=== PATIENT | female | born 1995 | race Two or more races ===

== ENCOUNTER 2018-06-28 20:20 | Observation (INO) | payer MEDICAID ==
[2018-06-28] MEDS ORDERED: LACTATED RINGER'S 1,000 ML IV ONE (20:40)
[2018-06-28] MEDS ORDERED: TERBUTALINE SULFATE 1 MG/ML 1ML VIAL SC SCH (20:45)
[2018-06-28] MEDS ORDERED: PREN-96 PO (21:07)
== END 2018-06-28 21:00 | disposition home or self-care (01) | DRG 566 ==
LOC: LDRP 20:20
PROVIDERS: ADMIT Obstetrics & Gynecology; ATTEND Obstetrics & Gynecology
DX: O26.613 Liver and biliary tract disorders in pregnancy, third trimester (principal); K80.20 Calculus of gallbladder without cholecystitis without obstruction; O21.2 Late vomiting of pregnancy; Z3A.36 36 weeks gestation of pregnancy
CPT/HCPCS: 59025; 81002; G0378

== ENCOUNTER 2025-09-21 21:10 | Emergency (ER) | payer MEDICAID ==
[~2025-09-21] VITALS: Ht 165.1 cm; Wt 84.0 kg
[~2025-09-21 21:10] MED LIST: PREN-96 PO
--- NOTE | 2025-09-21 21:32 | ED.PDOC ---
GI ASSESSMENT HPI Comments 29-year-old female who came to ER for nausea and vomiting. Patient has been having episodes of nausea and vomiting and diarrhea all day, associated with generalized weakness and dizziness Chief Complaint: Nausea/Vomiting Time Seen by MD: 21:30 Primary Care Provider: NONE Reviewed Notes: Nurses Notes Allergies: Coded Allergies: NO KNOWN ALLERGIES (Unverified , 09/15/13) Home Meds Active Scripts Loperamide Hcl (Imodium) 2 Mg Cp, 2 MG PO Q6HP PRN, #30 CAP Prov:EDGAR ROSE MD 09/22/25 Ondansetron HCl (Ondansetron Hydrochloride) 8 Mg Tab, 8 MG PO Q6HP PRN, #30 TAB Prov:EDGAR ROSE MD 09/22/25 Reported Medications Vit W/ Ferrous Fumara ( One Daily) Daily Tab, 1 TAB PO DAILY, #90 TAB 3 Refills 06/28/18 Information Source: Patient Mode of Arrival: EMS Timing: Hours Duration: Since onset Prehospital treatment: IVF Past Medical History PAST MEDICAL HISTORY: Gallstones Surgical History: Cholecystectomy, Denies all surgeries 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 History Family History Family History: No family hx of Cancer, No family hx of DM, No family hx of Heart benito, No family hx of HTN, No family hx of Lung benito Social History Smoker: Non-Smoker Alcohol: Occasionally Drugs: Denies Drug Use Lives In: Home Constitutional: denies: chills, diaphoresis, fatigue, fever, malaise, sweats, weakness, others EENTM: denies: blurred vision, double vision, ear bleeding, ear discharge, ear drainage, ear pain, ear ringing, eye pain, eye redness, hearing loss, mouth pain, mouth swelling, nasal discharge, nose bleeding, nose congestion, nose pain , photophobia, tearing, throat pain, throat swelling, voice changes, others Respiratory: denies: cough, hemoptysis, orthopnea, SOB at rest, shortness of breath, SOB with excertion, stridor, wheezing, others Cardiovascular: denies: chest pain, dizzy spells, diaphoresis, Dyspnea on exertion, edema, irregular heart beat, left arm pain, lightheadedness, palpitations, PND, syncope, others Gastrointestinal: reports: abdominal pain, diarrhea, nausea, vomiting; denies: abdomen distended, blood streaked bowels, constipated, dysphagia, difficulty swallowing, hematemesis, melena, poor appetite, poor fluid intake, rectal b leeding, rectal pain, others Genitourinary: denies: abnormal vagina bleeding, burning, dyspareunia, dysuria, flank pain, frequency, hematuria, incontinence, pain, , vagina discharge, urgency, others Neurological: reports: dizziness; denies: fainting, headache, left sided numbness, left sided weakness, numbness, paresthesia, pre-existing deficit, right sided numbness, right sided weakness, seizure, speech problems, tingling, tremors, weakness, others Musculoskeletal: denies: back pain, gout, joint pain, joint swelling, muscle pain, muscle stiffness, neck pain, others Integumetry: denies: bruises, change in color, change in hair/nails, dryness, laceration, lesions, lumps, rash, wounds, others Allergic/Immunocompromised: denies: Difficulty Healing, Frequent Infections, Hives, Itching, others Hematologic/Lymphatic: denies: anemia, blood clots, easy bleeding, easy bruising, swollen glands, others Endocrine: denies: excessive hunger, excessive sweating, excessive thirst, excessive urination, flushing, intolerance to cold, intolerance to heat, unexplained weight gain, unexplained weight loss, others Psychiatric: denies: anxiety, bipolar disorder, depression, hopeless, panic disorder, schizophrenia, sleepless, suicidal, others Physical Exam General Appearance: No Apparent Distress, Normal HEENT: Normal ENT Inspection, Pharynx Normal, TMs Normal Neck: Full Range of Motion, Non-Tender, Normal, Normal Inspection Respiratory: Chest Non-Tender, Lungs Clear, No Accessory Muscle Use, No Respiratory Distress, Normal Breath Sounds Cardiovascular: No Edema, No JVD, No Murmur, No Gallop, Normal Peripheral Pulses, Regular Rate/Rhythm Breast Exam: Deferred Gastrointestinal: Epigastric, No Organomegaly, No Pulsatile Mass, Normal Bowel Sounds, Soft, Tenderness Genitalia: Deferred Pelvic: Deferred Rectal: Deferred Extremities: No calf tenderness, Normal capillary refill, Normal inspection, Normal range of motion, Non-tender, No pedal edema Musculoskeletal : Apperance: Normal Neurologic: Alert, corn grower II-XII nml as Tested, No Motor Deficits, Normal Affect, Normal Mood, No Sensory Deficits Cerebellar Function: Normal Reflexes: Normal Skin: Dry, Normal Color, Warm Lymphatic: No Adenopathy Was a procedure done? Was a procedure done?: No GI differential Dx Differential Diagnosis: Gastritis/PUD, Gastroenteritis, Pancreatitis, UTI, Urolithiasis, Dehydration X-Ray, Labs, Meds, VS Vital Signs Date Time Temp Pulse Resp B/P (MAP) Pulse Ox O2 Delivery O2 Flow Rate FiO2 09/22/25 01:20 99 18 129/75 (93) 98 09/21/25 22:05 97.2 104 18 151/92 (111) 100 97.2 09/21/25 21:45 100 Room Air* 0 21 09/21/25 21:10 98.7 110 18 93/72 99 98.7 Lab Test 09/22/25 01:25 09/21/25 21:35 Range/Units Urine Color Light-yellow Yellow Urine Clarity Clear Clear Urine pH 5.5 5.0-9.0 Urine Specific [place] 1.023 1.001-1.035 Urine Protein Trace H Negative Urine Ketones 3+ H Negative Urine Blood 1+ H Negative /uL Urine Nitrite Negative Negative Urine Bilirubin Negative Negative Urine Urobilinogen Normal Negative mg/dL Urine Leukocyte Esterase Negative Negative /uL Urine RBC None seen 0 - 4 /hpf Urine Microscopic WBC 1 0-5 /HPF Urine Squamous Epithelial Cells Few <5 /hpf Urine Bacteria None seen None Seen /hpf Urine Mucus Few None Seen Urine Glucose Normal Normal mg/dL White Blood Count 10.6 4.4-10.8 10^3/uL Red Blood Count 4.69 4.0-5.20 10^6/uL Hemoglobin 15.1 12.2-16.2 g/dL Hematocrit 44.1 36.0-46.0 % Mean Corpuscular Volume 93.9 80.0-100.0 fL Mean Corpuscular Hemoglobin 32.2 H 28.0-32.0 pg Mean Corpuscular Hemoglobin Concent 34.3 32.0-36.0 g/dL Red Cell Distribution Width 13.8 11.8-14.3 % Platelet Count 285 140-450 10^3/uL Mean Platelet Volume 8.6 6.9-10.8 fL Neutrophils (%) (Auto) 88.6 H 37.0-80.0 % Lymphocytes (%) (Auto) 8.2 L 10.0-50.0 % Monocytes (%) (Auto) 2.7 0.0-12.0 % Eosinophils (%) (Auto) 0.0 0.0-7.0 % Basophils (%) (Auto) 0.5 0.0-2.0 % Neutrophils # (Auto) 9.4 H 1.6-8.6 10 ^3/uL Lymphocytes # (Auto) 0.9 0.4-5.4 10 ^3/uL Monocytes # (Auto) 0.3 0-1.3 10 ^3/uL Eosinophils # (Auto) 0 0-0.8 10 ^3/uL Basophils # (Auto) 0 0-0.2 10 ^3/uL Nucleated Red Blood Cells 0.0 % Sodium Level 148 H 136-145 mmol/L Potassium Level 3.5 3.5-5.1 mmol/L Chloride Level 111 H 98-107 mmol/L Carbon Dioxide Level 17 L 20-31 mmol/L Anion Gap 20 H 5-15 Blood Urea Nitrogen 6 L 9-23 mg/dL Creatinine 0.91 0.550-1.02 mg/dL Glomerular Filtration Rate Calc 87 >90 mL/min BUN/Creatinine Ratio 6.6 L 10.0-20.0 Serum Glucose 147 H 74-106 mg/dL Calcium Level 9.3 8.7-10.4 mg/dL Magnesium Level 1.5 L 1.6-2.6 mg/dL Total Bilirubin 1.5 H 0.2-1.0 mg/dL Aspartate Amino Transferase (AST) 67 H 13-40 U/L Alanine Aminotransferase (ALT) 116 H 7-40 U/L Alkaline Phosphatase 80 46-116 U/L Total Protein 7.5 5.7-8.2 g/dL Albumin 4.7 3.2-4.8 g/dL Current Medications Medications (Trade) Dose Ordered Sig/Dorothea Route Start Time Stop Time Status Last Admin Sodium Chloride 1,000 ml @ 1,000 mls/hr Q1H ONCE IV 09/21/25 21:30 09/21/25 22:29 DC 09/21/25 21:55 Ondansetron HCl (Zofran) 4 mg ONCE ONCE IV 09/21/25 21:30 09/21/25 21:31 DC 09/21/25 21:56 Loperamide HCl (Imodium Capsule) 4 mg ONCE ONCE PO 09/21/25 21:30 09/21/25 21:31 DC 09/21/25 21:55 Time of 1ST Reevaluation: 21:26 Reevaluation 1ST: Unchanged Patient Education/Counseling: Diagnosis, Treatment Family Education/Counseling: No Family Present SEPSIS Sepsis Screen Date sepsis recognized/suspect: Sep 21, 2025 Time Sepsis recognized/suspect: 2109 Recent Procedure: No On Antibiotic Therapy: No Respiratory Rate >20: No Heart Rate >90: No Temp<36 C (96.8 F) or >38.3 C: No SBP <90 or MAP <65 mmHG: No New Acute Mental Status Change: No Is the patient on CPAP, BIPAP,: No Vital Signs Date Time Temp Pulse Resp B/P (MAP) Pulse Ox O2 Delivery O2 Flow Rate FiO2 09/22/25 01:20 99 18 129/75 (93) 98 09/21/25 22:05 97.2 104 18 151/92 (111) 100 97.2 09/21/25 21:45 100 Room Air* 0 21 09/21/25 21:10 98.7 110 18 93/72 99 98.7 Laboratory Tests Test 09/21/25 21:35 White Blood Count 10.6 10^3/uL (4.4-10.8) Medications Medications Dose Ordered Sig/Dorothea Route Start Time Stop Time Status Last Admin Dose Admin Loperamide HCl 4 mg ONCE ONCE PO 09/21/25 21:30 09/21/25 21:31 DC 09/21/25 21:55 Ondansetron HCl 4 mg ONCE ONCE IV 09/21/25 21:30 09/21/25 21:31 DC 09/21/25 21:56 Sodium Chloride 1,000 ml @ 1,000 mls/hr Q1H ONCE IV 09/21/25 21:30 09/21/25 22:29 DC 09/21/25 21:55 Departure 1 Departure Time of Disposition: 23:40 Impression: Primary Impression: Nausea vomiting and diarrhea Additional Impression: Acute abdominal Pain Disposition: HOME / SELF CARE / HOMELESS Condition: Stable e-Prescriptions Loperamide Hcl (Imodium) 2 Mg Cp 2 MG PO Q6HP PRN, #30 CAP Prov: EDGAR ROSE MD 09/22/25 Ondansetron HCl (Ondansetron Hydrochloride) 8 Mg Tab 8 MG PO Q6HP PRN, #30 TAB Prov: EDGAR ROSE MD 09/22/25 Discharged With: Self Critical Care Note Critical Care Time?: No Stability Stability form required: No Heart Score Heart Score: Heart Score Response (Comments) Value History N/A 0 EKG N/A 0 Age N/A 0 Risk Factors N/A 0 Troponin N/A 0 Total 0 I personally scribed for EDGAR ROSE MD ([email or web address]) on 09/21/25 at 21:32. Electronically submitted by Jose Blunt ([email or web address]). EDGAR ROSE MD Sep 21, 2025 21:32
[2025-09-21 21:45] VITALS: O2SAT 100
[2025-09-21] MEDS: SODIUM CHLORIDE 0.9% 1,000 ML IV ONE (21:55)
[2025-09-21] MEDS: LOPERAMIDE HCL 2 MG CAP/TAB PO ONE (21:55)
[2025-09-21] MEDS: ONDANSETRON HCL 4 MG/2 ML VIAL IV ONE (21:56)
[2025-09-21 22:02] LABS: Hematocrit 44.1 % (36.0-46.0); Hemoglobin 15.1 g/dL (12.2-16.2); Mean Corpuscular Hemoglobin 32.2 pg (28.0-32.0); Mean Corpuscular Volume 93.9 fL (80.0-100.0); Nucleated Red Blood Cells % 0.0 %
[2025-09-21 22:05] VITALS: TEMP 97.2
[2025-09-21 22:23] LABS: Alanine Aminotransferase 116 U/L (7-40); Albumin 4.7 g/dL (3.2-4.8); Alkaline Phosphatase 80 U/L (46-116); Anion Gap 20 (5-15); BUN/Creatinine Ratio 6.6 (10.0-20.0); Bilirubin, Total 1.5 mg/dL (0.2-1.0); Blood Urea Nitrogen 6 mg/dL (9-23); Calcium 9.3 mg/dL (8.7-10.4); Carbon Dioxide 17 mmol/L (20-31); Chloride 111 mmol/L (98-107); Glucose 147 mg/dL (74-106); Magnesium 1.5 mg/dL (1.6-2.6); Potassium 3.5 mmol/L (3.5-5.1); Sodium 148 mmol/L (136-145); Total Protein 7.5 g/dL (5.7-8.2)
[2025-09-22] MEDS ORDERED: ONDA-180 PO (00:41)
[2025-09-22] MEDS ORDERED: LOPE2CAP16 PO (00:41)
[2025-09-22 01:20] VITALS: BP 129/75; PULSE 99; RESP 18; O2SAT 98
[2025-09-22 01:45] LABS: Urine Protein, UAD TRACE (Negative)
== END 2025-09-22 01:00 | disposition home or self-care (01) ==
LOC: EDBD 21:10 → EDUNIT# 21:10 → ER 21:10
DX: R11.2 Nausea with vomiting, unspecified (principal); R19.7 Diarrhea, unspecified; R10.9 Unspecified abdominal pain; Z90.49 Acquired absence of other specified parts of digestive tract; Z79.899 Other long term (current) drug therapy
CPT/HCPCS: 36415; 80053; 81001; 83735; 85025; 96361; 96374; 99283; J2405; J7030